=== PATIENT | female | born 1955 | race Caucasian/White ===

== ENCOUNTER 2023-07-17 05:27 | Emergency (ER) | payer MEDICARE, SELFPAY ==
[2023-07-17 05:29] VITALS: BP 143/101
[2023-07-17 05:44] LABS: Urine Albumin 3+ (Neg - Trace); Urine Bilirubin Negative (Negative); Urine Character Very Cloudy (Clear); Urine Color Red; Urine Glucose Negative (Negative); Urine Ketone Negative (Negative); Urine Leukocyte 2+ (Negative); Urine Nitrite Negative (Negative); Urine Occult Blood 4+ (Negative); Urine Specific Gravity 1.015 (<1.030); Urine Urobilinogen Negative (Neg - 1+); Urine pH 6.5 (5.0-9.0)
[2023-07-17 05:56] LABS: Urine Red Blood Cell >100 /HPF (0-2)
[2023-07-17 05:59] LABS: Urine Bacteria Few (Negative); Urine White Cell 60-70 /HPF (0-5)
[2023-07-17 06:52] VITALS: BMI 22.2
--- NOTE | 2023-07-17 07:00 | ED.GENMED ---
Addendum entered and electronically signed by Kiran Awan PA-C 07/19/23 07:02:
Urine culture greater than 100,000 colony-forming units of presumptive E. coli. On Keflex. Sensitivities pending
Original Note:
History of Present Illness
General
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
Source: patient
Exam Limitations: none
Time Seen by Provider: 07/17/23 06:48
Nursing documentation reviewed up to this point in time: agreed with
Travel History
Have you had any contact with someone who has COVID-19?: No
Do you have any symptoms of coronavirus? Fever > 100 degrees, chills, cough, shortness of breath, sore throat, loss of taste or smell, muscle aches, or headache?: No
History of Present Illness
History of Present Illness:
67-year-old female presents emergency ferment complaining of blood in her urine, and dysuria. This began when she woke up this morning. She denies any rectal bleeding or vaginal bleeding. No fevers.
Past History
Past History
ED Past Medical History: Cancer (Cervical cancer) and Other (Pulmonary embolism)
ED Past Surgical History: Bowel resection and Gynecological (Tubal ligation)
Social History
Tobacco: Smoker
Alcohol: None
Drug: None
Living: with family
Review of Systems
Review of Systems
Allergies reviewed?: Yes
All Other Systems: Not applicable
Constitutional: Reports no symptoms; Denies fever
EENT: Reports no symptoms
Respiratory: Reports no symptoms
Cardiac: Reports no symptoms
ABD/GI: Reports no symptoms; Denies abdominal pain
: Reports dysuria and other (Hematuria)
Musculoskeletal: Reports no symptoms
Skin: Reports no symptoms
Neurological: Reports no symptoms
Endocrine: Reports no symptoms
Hematologic/Lymphatic: Reports no symptoms
Psychiatric: Reports no symptoms
Phy Exam
Physical Exam
Physical Exam:
Physical Exam
General: no apparent distress, not acutely ill
Neck: supple. no meningeal signs. normal posterior pharynx
Heart: s1/s2 regular rate and rhythm, no murmur. equal radial
pulses.
HEENT: Pupils equal round reactive to light, EOMI
Lungs: no acute respiratory distress. clear bilaterally
Abdomen: normal bowel sounds. not tender. no CVAT
Neuro: alert and oriented. no focal neurological deficits
Skin: no rash
Psychiatric: well kept. interactive and cooperative
Extremities: no edema. good distal pulses
Course
Orders/Labs/Results
Orders:
Orders
07/17/23 05:37
Urinalysis Reflex To Culture Urgent
Date Specimen was Collected: 07/17/23
Time Specimen was Collected: 05:34
Urine Microscopic Reflex Cult Urgent
Urine Culture Urgent
SUSAN Source: U
Specimen Description:
Date Specimen was Collected: 07/17/23
Time Specimen was Collected: 05:34
07/17/23 07:00
Cephalexin Monohydrate [Keflex] 500 mg PO NOW STA
Phenazopyridine HCl [Pyridium] 100 mg PO NOW STA
Abnormal Lab Results
07/17/23
05:37
Ur Occult Blood Reflex 4+ A
(Negative)
Leukocyte Esterase Rfl 2+ A
(Negative)
Urine RBC >100 A /HPF
(0-2)
Urine WBC (Reflex) 60-70 A /HPF
(0-5)
Urine Bacteria (Reflex) Few A
(Negative)
Urine Albumin (Reflex) 3+ A
(Neg - Trace)
Vital Signs
Initial and Last Documented VS:
Initial Vital Signs
Temp Pulse Resp BP Pulse Ox
98.2 F 80 16 143/101 96
07/17/23 05:29 07/17/23 05:29 07/17/23 05:29 07/17/23 05:29 07/17/23 05:29
Last Documented Vital Signs
Temp Pulse Resp BP Pulse Ox
98.2 F 83 14 125/81 99
07/17/23 05:29 07/17/23 07:15 07/17/23 07:15 07/17/23 07:15 07/17/23 07:15
MDM/Problems Addressed
Differential Diagnosis Includes:
Hematuria, UTI
MDM/Problems Addressed:
67-year-old female with hemorrhagic cystitis, treated with Keflex, Pyridium. Follow-up with urology. Patient will likely need cystoscopy.
*Pulse Oximetry
Patient hypoxic: no
*EKG
Interpreted by ED Provider?: NA
*Packing Line Worker Interpretation
Rate: Packing Line Worker- N/A
*Critical Care Note
Total Time (30-74mins, 75-104mins- exclusive of procedures): Not Applicable
Patient Management
Social determinants of health affecting care: Living situation and Substance abuse (Vapes)
Escalation/DeEscalation of care consider admission/obs:
Admit not indicated
ED Attending Note
-
Portions of this chart may have been created with voice recognition software.� Occasional wrong word or��sound alike� substitutions may have occurred due to the inherent limitations of voice recognition software.
Discharge Plan
Departure
Patient Disposition: Home (Routine Discharge)
Date of Disposition: 07/17/23
Time of Disposition: 07:01
Patient with high blood pressure during this ER visit?: Yes
Condition: Good
Discharge Problem:
Urinary tract infection, Hematuria
Instructions: Blood in the urine (hematuria) in adults, Urinary Tract Infection, Adult (DC), BLOOD PRESSURE
Prescriptions:
New
cephalexin 500 mg capsule
500 mg PO BID 7 Days Qty: 14 0RF
No Action
lorazepam 0.5 MG tablet
0.5 mg PO R TIDPRN PRN (Reason: anxiety)
Patient Comments:
Takes PRN as well-max 3xs daily
mirtazapine 15 MG tablet
15 mg PO HS
Referrals:
Ivan Snowden MD [Active] - Call in 1-3 days for appt
Interventions
Interventions:
*Risk Screen - Suicide Last Done: 07/17/23 05:29
*General Assessment Last Done: 07/17/23 05:29
*Neglect/Abuse Screening Last Done: 07/17/23 05:29
ED- Fall Risk Assessment Last Done: 07/17/23 06:52
*ED COVID-19 Vaccine History Last Done: 07/17/23 06:52
ED-Female Genitourinary Assessment Last Done: 07/17/23 06:52
Discharge Date and Time
Print Language: NICARAGUAN
[2023-07-17] MEDS: KEFLEX 500 MG PO (07:06)
[2023-07-17] MEDS: Pyridium 100 MG PO (07:06)
[2023-07-17 07:15] VITALS: BP 125/81
== END 2023-07-17 07:37 | disposition home or self-care (01) ==
LOC: EMR 05:27
PROVIDERS: Emergency Medicine; EMERGENCY PHYSICIAN Emergency Medicine; FAMILY PHYSICIAN Physician Assistant Medical
DX: N30.91 Cystitis, unspecified with hematuria (principal); F17.290 Nicotine dependence, other tobacco product, uncomplicated; R03.0 Elevated blood-pressure reading, without diagnosis of hypertension
CPT/HCPCS: 99283; 81003; 81015; 87086; 87088; 87186

== ENCOUNTER → 2023-07-29 08:57 | Outpatient (REF) | payer MEDICARE, SELFPAY | LOC: RAD 08:57 | PROVIDERS: ATTENDING PHYSICIAN Urology; FAMILY PHYSICIAN Physician Assistant Medical | DX: N39.0 Urinary tract infection, site not specified (principal); R31.0 Gross hematuria; Z87.891 Personal history of nicotine dependence | CPT/HCPCS: 74178; Q9967 ==

== ENCOUNTER → 2023-12-01 07:08 | Outpatient (REF) | payer MEDICARE, SELFPAY | LOC: RCS 07:08 | PROVIDERS: ATTENDING PHYSICIAN Internal Medicine Interventional Cardiology; FAMILY PHYSICIAN Physician Assistant Medical | DX: Z82.49 Family history of ischemic heart disease and other diseases of the circulatory system (principal) | CPT/HCPCS: 93306 ==

== ENCOUNTER → 2023-12-12 07:14 | Outpatient (REF) | payer MEDICARE, SELFPAY | LOC: WDC 07:14 | PROVIDERS: ATTENDING PHYSICIAN Physician Assistant Medical; REFERRING PHYSICIAN Obstetrics & Gynecology Gynecology | DX: Z12.31 Encounter for screening mammogram for malignant neoplasm of breast (principal) | CPT/HCPCS: 77063; 77067 ==

== ENCOUNTER → 2024-02-07 07:54 | Outpatient (REF) | payer MEDICARE, SELFPAY | LOC: RAD 07:54 | PROVIDERS: ATTENDING PHYSICIAN Obstetrics & Gynecology Gynecology; FAMILY PHYSICIAN Physician Assistant Medical; REFERRING PHYSICIAN Obstetrics & Gynecology | DX: M85.89 Other specified disorders of bone density and structure, multiple sites (principal); Z78.0 Asymptomatic menopausal state | CPT/HCPCS: 77080 ==

== ENCOUNTER → 2024-04-03 07:42 | Outpatient (REF) | payer MEDICARE, SELFPAY | LOC: WDC 07:42 | PROVIDERS: ATTENDING PHYSICIAN Physician Assistant Medical | DX: R92.2 Inconclusive mammogram (principal) | CPT/HCPCS: 76641 ==

== ENCOUNTER → 2024-12-12 06:29 | Outpatient (REF) | payer MEDICARE, SELFPAY | LOC: WDC 06:29 | PROVIDERS: ATTENDING PHYSICIAN Obstetrics & Gynecology Gynecology; FAMILY PHYSICIAN Physician Assistant Medical | DX: Z12.31 Encounter for screening mammogram for malignant neoplasm of breast (principal) | CPT/HCPCS: 77063; 77067 ==